=== PATIENT | female | born 1980 | race American Indian/Alaskan Native ===

== ENCOUNTER 2018-01-23 23:01 | Emergency (ER) | payer OTHER ==
[2018-01-23 23:58] VITALS: BP 143/93
[2018-01-24 00:42] LABS: Basophils % (Auto) 0.3 % (0.0-1.8); Eosinophils # (Auto) 0.1 K/mm3 (0.0-0.4); Eosinophils % (Auto) 1.4 % (0.0-4.3); Hemoglobin 12.1 gm/dl (10.1-14.3); Lymphocytes # (Auto) 2.1 K/mm3 (1.2-5.4); Lymphocytes % (Auto) 24.9 % (13.4-35.0); Mean Corpuscular HGB Conc 34 % (30-34); Mean Corpuscular Hemoglobin 31 pg (28-32); Mean Corpuscular Volume 93 fl (79-97); Monocytes # (Auto) 0.6 K/mm3 (0.0-0.8); Monocytes % (Auto) 7.5 % (0.0-7.3); Platelet Count 249 K/mm3 (140-440); Red Blood Count 3.85 M/mm3 (3.65-5.03); Red Cell Distribution Width 12.6 % (13.2-15.2)
[2018-01-24 00:45] LABS: BUN/Creatinine Ratio 10; Blood Urea Nitrogen 6 mg/dL (7-17); Calcium 9.1 mg/dL (8.4-10.2); Hemolysis Index 8
--- NOTE | 2018-01-24 02:26 | Ultrasound Report ---
FINAL REPORT EXAM: US OB TRANSVAGINAL HISTORY: abdominal pain TECHNIQUE: Transvaginal imaging was obtained of the pelvis including Doppler interrogation of the fetus and adnexa. FINDINGS: The uterus is retroverted measuring 12.9 cm x 7 cm x 8 cm. Within the uterus is a gestational sac containing an embryo and yolk sac. The crown-rump length is 45.1 mm corresponding to an 11 week 2 day IUP. The heart rate is 163 BPM. There is no evidence of subchorionic hemorrhage. Free fluid is not seen. The right ovary is normal size contour and echotexture measuring 4 cm x 1.9 cm x 2.9 cm. The left ovary measures 2 cm x 1.2 cm x 1.4 cm is normal size and echotexture. The blood flow is normal both ovaries. IMPRESSION: Single viable IUP, 11 weeks 2 days. heart rate is 163 BPM. No adnexal masses or fluid collections.
--- NOTE | 2018-01-24 02:28 | Ultrasound Report ---
FINAL REPORT EXAM: US OB < = 14 WEEKS FETUS HISTORY: abdominal pain TECHNIQUE: Transabdominal imaging was obtained of the pelvis. Doppler interrogation of the fetus and adnexa was obtained. FINDINGS: The uterus is retroverted measuring 12.9 cm x 7 cm x 8 cm. Within the uterus is a gestational sac which contains a pole and yolk sac. The estimated gestational age is 11 weeks 2 days based on crown-rump length. The heart rate is 163 BPM. Free fluid is not seen. The right ovary is normal size contour blood flow and echotexture measuring 4 cm x 1.9 cm x 2.9 cm. The left ovary is normal size contour blood flow and echotexture measuring 2 cm x 1.2 cm x 1 4 cm. IMPRESSION: Single viable IUP, 11 weeks 2 days. The heart rate is 163 BPM.
[2018-01-24 02:36] LABS: Bacteria,Urine 1+ /HPF (Negative); Bilirubin,Urine NEG (Negative); Blood,Urine NEG (Negative); Color,Urine Yellow (Yellow); Mucus,Urine FEW /HPF; Protein,Urine <15 mg/dL mg/dL (Negative); Urobilinogen,Urine < 2.0 mg/dL (<2.0)
--- NOTE | 2018-01-24 03:14 | Emergency Department Report ---
HPI - General Chief Complaint: Nausea/Vomiting/Diarrhea Time Seen by Provider: 01/24/18 02:56 - HPI HPI: 37-year-old female presents to the emergency department with complaint of nausea and vomiting while . The patient says that has been going on over the past 2 weeks and started off more as morning sickness but now sometimes can affect her throughout the entire day. She says that she has been able to keep down some fluid but has trouble keeping down any food. With this she is with one previous . Her [employer] is Dr. Morris who recently placed her on promethazine. She denies any vaginal bleeding, abdominal pain, vaginal discharge, fever. No recent travel or sick contacts at home. She otherwise has a past medical history of hypertension. ED Past Medical Hx - Past Medical History Hx Hypertension: Yes - Surgical History Additional Surgical History: GI Blockage - Social History Smoking Status: Never Smoker Substance Use Type: None - Medications Home Medications: Home Medications Medication Instructions Recorded Confirmed Last Taken Type Tablet 1 tab PO DAILY 01/23/18 01/24/18 Unknown History Promethazine 25 mg PO Q4H PRN 01/23/18 01/23/18 Unknown History ED Review of Systems ROS: Stated complaint: MORNING SICKNESS 11 WEEKS PREG Other details as noted in HPI Comment: All other systems reviewed and negative Constitutional: denies: chills, fever Eyes: denies: eye pain, eye discharge, vision change ENT: denies: ear pain, throat pain Respiratory: denies: cough, shortness of breath, wheezing Cardiovascular: denies: chest pain, palpitations Gastrointestinal: nausea, vomiting. denies: abdominal pain Genitourinary: denies: urgency, dysuria, discharge Musculoskeletal: denies: back pain, joint swelling, arthralgia Skin: denies: rash, lesions Neurological: denies: headache, weakness, paresthesias Physical Exam - Physical Exam Vital Signs: Vital Signs 01/23/18 23:50 Temperature 98.9 F Pulse Rate 104 H Respiratory 18 Rate Blood Pressure 143/93 O2 Sat by Pulse 98 Oximetry Physical Exam: GENERAL: The patient is well-developed well-nourished. HENT: Normocephalic. Atraumatic. Patient has moist mucous membranes. EYES: Extraocular motions are intact. NECK: Supple. Trachea is midline. CHEST/LUNGS: Clear to auscultation. There is no respiratory distress noted. HEART/CARDIOVASCULAR: Regular. There is no tachycardia. There is no murmur. ABDOMEN: Abdomen is soft, nontender. Patient has normal bowel sounds. There is no abdominal distention. SKIN: Skin is warm and dry. NEURO: The patient is awake, alert, and oriented. The patient is cooperative. The patient has no focal neurologic deficits. The patient has normal speech. MUSCULOSKELETAL: There is no tenderness or deformity. There is no limitation range of motion. There is no evidence of acute injury. ED Course Vital Signs 01/23/18 23:50 Temperature 98.9 F Pulse Rate 104 H Respiratory 18 Rate Blood Pressure 143/93 O2 Sat by Pulse 98 Oximetry ED Medical Decision Making - Lab Data Result diagrams: 01/24/18 00:13 01/24/18 00:13 - Radiology Data Radiology results: report reviewed EXAM: US OB TRANSVAGINAL HISTORY: abdominal pain TECHNIQUE: Transvaginal imaging was obtained of the pelvis including Doppler interrogation of the fetus and adnexa. FINDINGS: The uterus is retroverted measuring 12.9 cm x 7 cm x 8 cm. Within the uterus is a gestational sac containing an embryo and yolk sac. The crown-rump length is 45.1 mm corresponding to an 11 week 2 day IUP. The heart rate is 163 BPM. There is no evidence of subchorionic hemorrhage. Free fluid is not seen. The right ovary is normal size contour and echotexture measuring 4 cm x 1.9 cm x 2.9 cm. The left ovary measures 2 cm x 1.2 cm x 1.4 cm is normal size and echotexture. The blood flow is normal both ovaries. IMPRESSION: Single viable IUP, 11 weeks 2 days. heart rate is 163 BPM. No adnexal masses or fluid collections. Transcribed By: BRUNILDA Dictated By: SWAPNA SINGLETON MD Electronically Authenticated By: SWAPNA SINGLETON MD Signed Date/Time: 01/24/18220 - Medical Decision Making 37-year-old female presents with complaint of some nausea and vomiting. Labs are mostly unremarkable. Urinalysis does not show any urinary tract infection or ketones. Ultrasound was done that shows a live intrauterine at about 11 weeks and 2 days. The patient already is on some antinausea medication from her [employer] and has good follow-up. She says she is able to keep down fluid but is having an issue with food. She appears safe for discharge home. She has been encouraged to increase her oral rehydration and she will return to the ER with any worsening of her symptoms or any acute distress. - Differential Diagnosis , viral syndrome, food poisoning, hyperemesis gravidarum Critical Care Time: No Critical care attestation.: If time is entered above; I have spent that time in minutes in the direct care of this critically ill patient, excluding procedure time. ED Disposition Clinical Impression: Qualifiers: Weeks of gestation: 11 weeks Qualified Code(s): Z3A.11 - 11 weeks gestation of Nausea & vomiting Qualifiers: Vomiting type: unspecified Vomiting Intractability: non-intractable Qualified Code(s): R11.2 - Nausea with vomiting, unspecified Disposition: DC-01 TO HOME OR SELFCARE Is pt being admited?: No Condition: Stable Instructions: (ED), Acute Nausea and Vomiting (ED) Additional Instructions: Please follow-up with your [employer] in the next few days. Increase your oral rehydration. Return to the emergency department with any intractable vomiting, worsening of your symptoms, or with any acute distress. Referrals: ANTONINA COLEMAN MD [Primary Care Provider] - 3-5 Days Time of Disposition: 03:11
== END 2018-01-24 03:19 | disposition home or self-care (01) ==
LOC: ED 23:01
DX: O21.9 Vomiting of pregnancy, unspecified (principal); O16.1 Unspecified maternal hypertension, first trimester; Z3A.11 11 weeks gestation of pregnancy
CPT/HCPCS: 36415; 76801; 76817; 80048; 81001; 84702; 85025; 99284